=== PATIENT | male | born 1945 | race Caucasian/White ===

== ENCOUNTER → 2016-06-04 | Outpatient (CLI) | payer OTHER ==
--- NOTE | 2016-06-04 19:52 | DX ---
Right unilateral rib series, 3 views - June 04, 2016 Indication: Unspecified pain. [place] a pop on the right side. Comparison: [facility] portable chest April 16, 2014. Findings: No fracture is identified. Lungs are clear. Heart and mediastinum are stable. No pneumothor ax or pneumomediastinum. Impression: No rib fracture is seen.
== END ==
LOC: FIMAGING 13:08
PROVIDERS: ATTEND Family Medicine
DX: M54.6 Pain in thoracic spine (principal); R10.9 Unspecified abdominal pain

== ENCOUNTER → 2016-12-19 | Outpatient (CLI) | payer OTHER, MEDICARE | LOC: BHLMT 14:45 | PROVIDERS: ATTEND Internal Medicine Cardiovascular Disease | DX: R09.89 Other specified symptoms and signs involving the circulatory and respiratory systems (principal); R00.2 Palpitations; I25.10 Atherosclerotic heart disease of native coronary artery without angina pectoris | CPT/HCPCS: 93306-PO ==

== ENCOUNTER → 2016-12-27 | Outpatient (CLI) | payer OTHER, MEDICARE ==
[~2016-12-27] MED LIST: IOPAMIDOL (ISOVUE 370) 100 ML BTL IV ONE
== END ==
LOC: CIMAGING 14:07
PROVIDERS: ATTEND Internal Medicine Cardiovascular Disease
DX: I65.23 Occlusion and stenosis of bilateral carotid arteries (principal)
CPT/HCPCS: 70498; Q9967; 82565-PO

== ENCOUNTER → 2018-03-07 | Outpatient (CLI) | payer OTHER, MEDICARE | LOC: BHFA 09:00 | PROVIDERS: ATTEND Internal Medicine Cardiovascular Disease | DX: I25.10 Atherosclerotic heart disease of native coronary artery without angina pectoris (principal); R00.2 Palpitations; E78.00 Pure hypercholesterolemia, unspecified ==